=== PATIENT | female | born 1980 | race Hispanic/Latino ===

== ENCOUNTER 2017-08-19 20:40 | Observation (INO) | payer SELFPAY ==
[2017-08-19] MEDS ORDERED: Acetaminophen 500 MG TAB ONE (21:14)
--- NOTE | 2017-08-19 21:30 | CT ---
CT OF THE BRAIN WITHOUT CONTRAST: 08/19/17 COMPARISON: None. HISTORY: Headache while driving in the back of the head. TECHNIQUE: Multiple contiguous axial images were obtained in a CT of the brain without contrast. FINDINGS: There is subtle hypodense regions in the bilateral parieto-occipital regions. These may be artifactu al, but edema in the parieto-occipital regions is also a possibility. No other intracranial abnormal ity is seen. There is no evidence of hydrocephalus, intracranial hemorrhage or extra-axial fluid col lection. The calvarium and overlying soft tissues are unremarkable. The visualized paranasal sinuses and mast oid air cells are well aerated. IMPRESSION: Possible edema in the bilateral parieto-occipital regions. This could be secondary to PRES. Correlat e with history of hypertension. An MRI of the brain will be necessary to evaluate this region furthe r if desired. POS: BARRETT
[2017-08-19 21:39] LABS: #Basophils 0.1 thou/uL (0.0-0.2); #Eosinphils 0.3 thou/uL (0.0-0.7); #Lymphocytes 4.3 thou/uL (1.20-3.40); #Monocytes 0.7 thou/uL (0.11-0.59); #Neutrophils 6.2 thou/uL (1.40-6.50); %Basophils 1.1 % (0.0-1.0); %Eosinophils 2.6 % (0.0-10.0); %Lymphocytes 36.9 % (21.0-51.0); %Monocytes 5.8 % (0.0-10.0); Hematocrit 41.4 % (36.0-47.0); Mean Platelet Volume 15.7 fL (7.4-10.4); Red Blood Cell (RBC) Count 4.72 mill/uL (4.20-5.40); White Blood Cell (WBC) Count 11.5 thou/uL (4.8-10.8)
[2017-08-19 21:40] LABS: PTT 28.1 SEC (22.9-36.1); Prothrombin Time 12.9 SEC (12.0-14.7)
[2017-08-19 21:47] LABS: Anion Gap 18 mmol/L (10-20); BUN (Urea Nitrogen) 14 mg/dL (7.0-18.7); Calc. Creatinine Clearance 0 mL/min (70-130); Carbon Dioxide 23 mmol/L (22-29); Chloride 104 mmol/L (98-107); Estimated GFR-MDRD 61
[2017-08-19 22:46] VITALS: BMI 34.7
[2017-08-19] MEDS ORDERED: Ondansetron HCl/PF 4 MG/2 ML Vial IVP PRN (23:58)
[2017-08-19] MEDS ORDERED: Acetaminophen 325 MG TAB PO PRN (23:58)
[2017-08-19] MEDS ORDERED: HYDROcodone/Acetaminophen 5/325 mg Tablet PO PRN (23:58)
--- NOTE | 2017-08-19 23:58 | PDOC.EVN ---
Event Note - Event Note Event Note: H&p dictated [id number] 1. Headache 2. h/o dm type 2 3. hpl plan:see orders
[2017-08-20] MEDS ORDERED: Enoxaparin Sodium 40 MG/0.4 ML SYRINGE SC SCH (00:01)
[2017-08-20] MEDS ORDERED: Dextrose 5% in Water 1,000 ML IV PRN (00:06)
[2017-08-20] MEDS ORDERED: Dextrose 50% Abboject 50 ML SYRINGE SLOW IVP PRN (00:06)
[2017-08-20] MEDS ORDERED: HumaLOG 300 UNITS/3 ML VIAL SC PRN ×2 (00:06)
--- NOTE | 2017-08-20 06:47 | HP ---
DATE OF ADMISSION: 08/19/2017 CHIEF COMPLAINT: Headache. HISTORY OF PRESENT ILLNESS: The patient is a 37-year-old female with past medical history of intermittent headaches, diabetes mellitus type 2, hyperlipidemia who came to the ER because of headache. The patient said she started having occipital headache. The headache is dull in intensity, associated with some dizziness while she was driving the car, associated with some sweating and nausea also. Symptoms lasted for 4-5 minutes, so patient went to the outside ER. The notes say that the patient still had headache. Headache is dull kind. Denies any fever, denies any chills, denies any neck pain. She had some episodes of headache in the past also. Denies seeing a neurologist in the past. Denies any chest pain, denies any trouble breathing. PAST MEDICAL HISTORY: As per HPI. PAST SURGICAL HISTORY: Appendectomy, cholecystectomy. SOCIAL HISTORY: Denies smoking, denies alcohol, denies any drugs. MEDICATIONS: Reviewed. ALLERGIES: MORPHINE. REVIEW OF SYSTEMS: CONSTITUTIONAL: Denies any fever, denies any chills. HEENT: Eyes; denies vision problems. Ears, denies any hearing loss. NECK: Denies any neck pain. CARDIOVASCULAR: Denies any chest pain, denies palpitations. RESPIRATORY: Denies any cough, denies sputum production. GASTROINTESTINAL: Denies nausea, vomiting. MUSCULOSKELETAL: Denies any joint deformities. CRANIAL NERVE SYSTEM: Positive for headache. Positive for dizziness. PSYCHIATRIC: Denies anxiety. INTEGUMENT: Denies any rash. All other review of systems are reviewed and are negative. PHYSICAL EXAMINATION: CONSTITUTIONAL/VITAL SIGNS: At the time of H\T\P performed, blood pressure is 130/70, afebrile, respiration rate 18, pulse ox 97% on room air. GENERAL: The patient appears comfortable. HEENT: Hearing normal. Teeth intact. Tongue is moist. NECK: Supple. No JVD. CARDIOVASCULAR SYSTEM: S1, S2 present. Regular rate and rhythm. No murmurs, no rubs, no gallops. RESPIRATORY SYSTEM: No wheezing, no rhonchi. Breath sounds bilaterally. normal effort GASTROINTESTINAL: Soft, nontender, no guarding, no organomegaly, no masses felt. MUSCULOSKELETAL: No edema. moves all joints NEUROLOGIC: Cranial nerves intact. Follows commands. Strength intact, sensory intact. PSYCHIATRIC: Mood is appropriate at this time. GENITOURINARY: No suprapubic tenderness. No inguinal tenderness. INTEGUMENTARY: No rashes seen. LABORATORY DATA: At the time of H\T\P performed; white count 11.5, hemoglobin 14.3, platelet 189, PT 12.9, INR 1. BMP showed sodium 141, potassium 3.9, chloride 104, CO2 23, BUN 14, creatinine 1.02. CT head done in the outside ER was positive for possible edema in the bilateral parietooccipital region, cannot rule out PRES. ASSESSMENT AND PLAN: The patient is a 37-year-old female. 1. Headache, rule out PRES. The patient denies any history of hypertension in the past. Blood pressure is controlled at this time. We will go ahead and do MRI brain, we will consult Neurosurgery and Neurology to evaluate the patient and we will follow the patient closely. 2. History of diabetes type 2. Monitor blood sugars. We will do insulin sliding scale. 3. History of hyperlipidemia. Continue statins. The case was discussed in detail with the patient. JAVIER
[2017-08-20] MEDS ORDERED: Loperamide HCl 2 MG CAP PO PRN (08:24)
[2017-08-20] MEDS ORDERED: Milk Of Magnesia 30 ML UDCUP PO PRN (08:24)
[2017-08-20] MEDS ORDERED: Mag-Al 1200 mg/1200 mg/30 ML UDCUP PO PRN (08:24)
[2017-08-20] MEDS ORDERED: Ondansetron ODT 4 MG TAB PO PRN (08:24)
[2017-08-20] MEDS ORDERED: Diabetic Tussin 200 MG/10 ML UDCUP PO PRN (08:24)
[2017-08-20] MEDS ORDERED: Senokot 8.6 MG TAB PO PRN (08:24)
[2017-08-20] MEDS ORDERED: Eucerin (Mineral Oil/Petrolatum,White) 30 gm Jar TOP PRN (08:24)
[2017-08-20] MEDS ORDERED: Loratadine 10 MG TAB PO PRN (08:24)
[2017-08-20] MEDS ORDERED: Lisinopril 5 MG TAB PO SCH ×2 (09:00→21:00)
--- NOTE | 2017-08-20 09:43 | CON ---
DATE OF CONSULTATION: 08/20/2017 Dustin Casas PA-C dictating for Dr. Yao Santana. This is an initial 50 minute consult, in which greater than 50% of the exam was spent in counseling and coordinating patient's care. The remainder of the exam was spent in review of patient's medical records and appropriate imaging studies. CHIEF COMPLAINT: Headache. HISTORY OF PRESENT ILLNESS: Ms. Leonard is a pleasant 37-year-old female who presents to [facility] emergency room at [facility] yesterday with complaints of bilateral occipital and bilater al frontal headaches. She states that she lived with intermittent headaches for several years, but over the past month, her headaches had become more frequent and of transient induration. She states that some of her headaches are related to tension, but denies any photophobia or changes with noise . She states yesterday her headache was more severe as she was driving and was unable to concentrat e, has significant amount of pulling sensation in the bilateral occipital regions. She states some significant nausea with this headache, but otherwise denies any vomiting or blurred vision. She sta talia that over the past month, she has not had any falls or any balance issues and has not noticed an y weakness in the bilateral upper or bilateral lower extremities. She does have a history of type 2 diabetes and hypertension of which she has been taking lisinopril over the past 4 years. She does not have any family history of aneurysm and no personal history of cancer, although she does have a family member who did have breast cancer. She is not currently on any aspirin, Plavix or Coumadin. CT scan was obtained in the emergency room yesterday that showed bilateral occipital edema and Neur osurgery was asked to consult regarding this. PHYSICAL EXAMINATION: The patient is awake, alert, and appropriate. She is oriented x3 and her GCS is currently 15. She is able to appropriately identify a writing pen as purpose as well as correct ly to find the definition of [place]. She has full strength in the bilateral upper and bilateral lower extremities. She has no deficits on visual confrontation exam. She has no pronator drift calista aterally. Pupils are equal, round, and reactive bilaterally. IMPRESSION: Intermittent headache with some vasogenic edema noted on CT scan bilateral occipital re gions. PLAN: I have discussed the patient's case with Dr. Santana. At this time, it is appropriate to awai t the results of the MRI with and without contrast of the brain. At this time, we need further info rmation just to determine the next appropriate step in treatment. We will check back once the johne nt's MRI has been completed. I agree with continuing to appropriately manage the patient's headache pain and continue with neurology consult. We will continue to monitor the patient's neurologic exa m. Please call with any questions or concerns or any changes. We will again check back once her MR I has been completed.
[2017-08-20] MEDS: Famotidine 20 MG TAB PO SCH ×2 (10:53→20:11)
--- NOTE | 2017-08-20 12:14 | PDOC.PN ---
- Subjective Encounter Start Date: 08/20/17 Encounter Start Time: 07:40 -: old records requested/rev still has posterior occipital headache - Objective MAR Reviewed: Yes Vital Signs & Weight: Vital Signs (12 hours) Temp Pulse Resp BP Pulse Ox 08/20/17 10:53 62 08/20/17 08:00 98.0 F 62 18 107/74 97 08/20/17 04:11 97.8 F 73 16 106/71 100 I&O: 08/19/17 08/20/17 08/21/17 06:59 06:59 06:59 Intake Total 400 Balance 400 Result Diagrams: 08/19/17 21:28 08/19/17 21:28 Additional Labs: Accuchecks 08/20/17 08/20/17 11:28 06:13 POC Glucose 208 H 146 H EKG Reviewed by me: Yes Phys Exam - Physical Examination Constitutional: NAD HEENT: PERRLA, moist MMs, sclera anicteric Neck: no JVD, supple Respiratory: no wheezing, no rales, no rhonchi Cardiovascular: RRR, no significant murmur, no rub Gastrointestinal: soft, non-tender, no distention, positive bowel sounds Musculoskeletal: no edema, pulses present Neurological: non-focal, normal sensation, moves all 4 limbs Psychiatric: normal affect, A&O x 3 Skin: no rash, normal turgor Dx/Plan (1) Headache Code(s): R51 - HEADACHE Status: Acute Comment: PRES (2) Diabetes type 2, controlled Code(s): E11.9 - TYPE 2 DIABETES MELLITUS WITHOUT COMPLICATIONS Status: Chronic (3) Dyslipidemia Code(s): E78.5 - HYPERLIPIDEMIA, UNSPECIFIED Status: Chronic (4) Hypertension Code(s): I10 - ESSENTIAL (PRIMARY) HYPERTENSION Status: Chronic (5) Obesity (BMI 30.0-34.9) Code(s): E66.9 - OBESITY, UNSPECIFIED Status: Chronic - Plan cont current plan of care, plan discussed w/ family * MRI brain * neurology consulted * if consultants clears, will consider discharge * medication reviewed as below * symptomatic treatment. * home medication reconciled Review of Systems - Review of Systems ENT: negative: Ear Pain, Ear Discharge, Nose Pain, Nose Discharge, Nose Congestion, Mouth Pain, Mouth Swelling, Throat Pain, Throat Swelling, Other Respiratory: negative: Cough, Dry, Shortness of Breath, Hemoptysis, SOB with Excertion, Pleuritic Pain, Sputum, Wheezing Cardiovascular: negative: Chest Pain, Palpitations, Orthopnea, Paroxysmal Noc. Dyspnea, Edema, Light Headedness, Other Gastrointestinal: negative: Nausea, Vomiting, Abdominal Pain, Diarrhea, Constipation, Melena, Hematochezia, Other Genitourinary: negative: Dysuria, Frequency, Incontinence, Hematuria, Retention , Other Musculoskeletal: negative: Neck Pain, Shoulder Pain, Arm Pain, Back Pain, Hand Pain, Leg Pain, Foot Pain, Other - Medications/Allergies Allergies/Adverse Reactions: Allergies Allergy/AdvReac Type Severity Reaction Status Date / Time morphine Allergy Verified 08/19/17 22:54 Medications: Current Medications Acetaminophen (Tylenol) 650 mg PO Q4H PRN PRN Reason: Headache/Fever or Pain Hydrocodone Bitart/Acetaminophen ([place] 5/325) 1 tab PO Q4H PRN PRN Reason: Moderate Pain (4-6) Al Hydroxide/Mg Hydroxide (Maalox) 15 ml PO Q4H PRN PRN Reason: Heartburn or Indigestion Atorvastatin Calcium (Lipitor) 10 mg PO QPM [facility] Dextrose/Water (Dextrose 50%) 25 gm SLOW IVP PRN PRN PRN Reason: Hypoglycemia Famotidine (Pepcid) 20 mg PO BID [facility] Last Admin: 08/20/17 10:53 Dose: Not Given Glucagon (Glucagon) 1 mg IM PRN PRN PRN Reason: Hypoglycemia Guaifenesin (Robitussin Sf) 200 mg PO Q4H PRN PRN Reason: Cough Hydralazine HCl (Apresoline) 10 mg SLOW IVP Q4H PRN PRN Reason: Systolic BP > 180 Dextrose/Water (D5w) 1,000 mls @ 0 mls/hr IV .Q0M PRN; As Directed PRN Reason: Hypoglycemia Insulin Human Lispro (Humalog) 0 units SC .MODERATE SLIDING SC PRN PRN Reason: Moderate Correctional Scale Insulin Human Lispro (Humalog) 0 units SC .BEDTIME SLIDING SC PRN PRN Reason: Bedtime Correctional Scale Lisinopril (Zestril) 5 mg PO QPM [facility] Loperamide HCl (Imodium) 2 mg PO PRN PRN PRN Reason: Diarrhea/Loose Stools Loratadine (Claritin) 10 mg PO DAILYPRN PRN PRN Reason: Sinus Symptoms Magnesium Hydroxide (Milk Of Magnesium) 30 ml PO DAILYPRN PRN PRN Reason: Constipation Metformin HCl (Glucophage Xr) 500 mg PO BID-WM [facility] Mineral Oil/White Petrolatum (Eucerin Cream) 0 gm TOP BIDPRN PRN PRN Reason: Dry Skin Ondansetron HCl (Zofran) 4 mg IVP Q6H PRN PRN Reason: Nausea/Vomiting Ondansetron HCl (Zofran Odt) 4 mg PO Q6H PRN PRN Reason: Nausea/Vomiting Pantoprazole Sodium (Protonix) 40 mg PO QPM [facility] Senna (Senokot) 2 tab PO HSPRN PRN PRN Reason: Constipation
--- NOTE | 2017-08-20 16:38 | MRI ---
MRI BRAIN WITH AND WITHOUT CONTRAST: 08/20/17 Multiplanar and multisequential imaging of brain obtained. Postcontrast images obtained with adminis tration of 18 mL of Multihance IV. HISTORY: Headache. CT from 08/19/17 at 9 p.m. questioned lucency in the occipitoparietal regions. FINDINGS: Ventricles have normal size and position. There is no evidence of mass or edema. Specifically, there is no edema or abnormal signal seen in the occipitoparietal regions on MRI. There is no evidence of restricted diffusion. No white matter abnormality. No abnormal enhancement. The intracranial investigator internal revenue al carotid arteries and proximal cerebral arteries show flow voids. The paranasal sinuses and mastoi ds appear clear. IMPRESSION: Unremarkable MRI of brain. POS: BARRETT
[2017-08-20] MEDS ORDERED: metFORMIN HCl XR 500 MG TAB PO SCH (17:00)
[2017-08-20] MEDS: HYDROcodone/Acetaminophen 5/325 mg Tablet PO PRN (19:11)
[2017-08-20] MEDS: metFORMIN HCl XR 500 MG TAB PO SCH (20:12)
[2017-08-20] MEDS ORDERED: Atorvastatin Calcium 10 MG TAB PO SCH (21:00)
[2017-08-21] MEDS: HYDROcodone/Acetaminophen 5/325 mg Tablet PO PRN (00:05)
--- NOTE | 2017-08-21 00:25 | CON ---
DATE OF CONSULTATION: 08/20/2017 REFERRING PROVIDER: Dr. Walter Kellogg. REASON FOR CONSULTATION: Intractable headache. HISTORY OF PRESENT ILLNESS: Ms. Leonard is a pleasant 37-year-old female who has been cons idered for evaluation of intractable headache and dizziness. The patient reports that yesterday she was driving and suddenly noticed blurry vision, nausea, dizziness and difficulty with focusing and concentrating. She was having difficulty with driving. For this reason, she pulled over and gave h er son to drive her car. Her symptoms lasted for approximately 3-4 minutes. After she reached home , she developed headache into the bifrontal region. This was mild to moderate in intensity, nonradi ating and lasted for several hours. She also had pain into the back of the head that was nonradiati ng and mild in intensity. She reports that over the past one month, she has been having increasing episodes of headaches that are located into the bifrontal region as they are nonradiating, mild in i ntensity and dull in quality. She has blurry vision and fuzzy feeling with these episodes. There i s no photophobia, phonophobia, nausea, vomiting, abdominal pain, numbness, tingling or weakness asso ciated with these headaches. She also has been getting headaches into the back of the head, which a re mild in intensity and she associated them with increased stress. She notes that her woul d massage her neck and this would improve her headaches. She also mentions that she has been having headaches in the frontal region prior to 1 month ago, which were happening approximately once a fri, but over the past 1 month, they have been happening about 3-4 times a week. She has a sister wh o had the history of migraine headaches, currently she reports of having no symptoms. PAST MEDICAL HISTORY: Significant for diabetes, hyperlipidemia. PAST SURGICAL HISTORY: Significant for appendectomy and cholecystectomy. SOCIAL HISTORY: She denies smoking, alcohol use or illicit drug use. She is . CURRENT MEDICATIONS: Please review MAR. ALLERGIES: Include MORPHINE. REVIEW OF SYSTEMS: As mentioned in above HPI, otherwise negative. FAMILY HISTORY: Significant for a sister with migraine headaches. PHYSICAL EXAMINATION: VITAL SIGNS: Blood pressure 110/76, pulse of 72, temperature of 98.6, respirations of 14, O2 sats o f 99% on room air. GENERAL: Well-developed, well-nourished female, in no apparent distress. RESPIRATORY: Clear to auscultation bilaterally. CARDIOVASCULAR: Regular rate and rhythm. NEUROLOGICAL: Mental status: The patient is awake, alert, oriented x3. Speech and language: Flue nt speech. Cranial nerves: Pupils are 3 mm and reactive. Visual [place] are intact. Extraocular m uscles are intact. No nystagmus is noted. Face is symmetric. Tongue and uvula are midline. Motor exam showed normal tone and bulk with 5/5 strength in both upper and lower extremities. Sensory: Sensation is intact and symmetric. Deep tendon reflexes 2+ reflexes in both upper and lower extremi ties. Babinski: Plantar responses flexion bilaterally. Coordination intact to [id number] tapping bilaterally. LABORATORY DATA: Reviewed, which included CBC, coag panel, BMP, and urine test, which is significant for WBCs of 11.5, glucose of 113, otherwise unremarkable. IMAGING STUDIES: MRI brain without contrast was reviewed, which showed no acute intracranial abnorm ality. IMPRESSION: 1. Migraine headache with aura, intractable. 2. Tension headache. PLAN: Ms. Leonard is a pleasant 37-year-old female, who presented with the episode of naus ea, dizziness, blurry vision and difficulty concentrating followed by bifrontal headache. Based on the descriptions of her symptoms, this is likely migraine with aura. She has been having headaches, which are a combination of migraine and tension headaches. I have discussed with her at length abo tn a preventive and abortive therapy. I have explained that since these headaches has just started recently with the increased frequency, I would not recommend starting her on any preventive therapy. She can be started on Imitrex or Amerge for a breakthrough headache. I have explained to her that if the headaches continued to be bothersome and increased in frequency, then she may need to be sta rted on a preventive therapy. I will be happy to see her in my clinic if she has worsening of the h eadaches. There is no further neurological workup needed. Thank you for your consultation.
[2017-08-21] MEDS: Famotidine 20 MG TAB PO SCH (10:05)
[2017-08-21] MEDS: metFORMIN HCl XR 500 MG TAB PO SCH (10:05)
--- NOTE | 2017-08-21 11:21 | PRG ---
DATE OF SERVICE: 08/21/2017 This is a 30 minutes hospital visit note in which 30 minutes were spent in reviewing the imaging, re cord, evaluation and examination of the patient, and formulation of a plan. Greater than 50% of the time was spent in counseling on Loren Leonard. CHIEF COMPLAINT: Headache. HISTORY OF PRESENT ILLNESS: I reviewed the notes of my colleague Dustin Casas PA-C, and agree wi th its content. Ms. Leonard is a 37-year-old otherwise healthy female. She presented yesterday for headache. Head CT suggested perhaps left occipital pole, hypodensity MRI was negative; however, I r eviewed both sets of images. She has been seen by Dr. Silvestre for headache. This morning, she has no complaints. PHYSICAL EXAMINATION: She is GCS 15. She is alert, appropriate. Neurologically intact. IMPRESSION AND PLAN: I do not think there is anything neurosurgically wrong with this patient as vance ch, I will sign off. I do not think it is necessary for followup from a neurosurgical standpoint as her imaging and exam are negative. Follow up with Dr. Silvestre to be determined by him. DIAGNOSIS: Headache.
--- NOTE | 2017-08-21 12:54 | DIS ---
PRIMARY CARE PHYSICIAN: Alma Franklin D.O. DATE OF ADMISSION: 08/19/2017 DATE OF DISCHARGE: 08/21/2017 DISCHARGE DISPOSITION: Home. PRIMARY DISCHARGE DIAGNOSIS: Migraine headache. SECONDARY DISCHARGE DIAGNOSES: Diabetes type 2, hypertension, dyslipidemia, obesity with body mass index 34. PRIMARY PROCEDURE/OPERATION: None. RADIOLOGICAL INVESTIGATION: CT brain reported possible edema in bilateral parieto-occipital region. This could be secondary to PRES, but MRI subsequently was completely normal. SIGNIFICANT LABORATORY DATA: WBC 11.5, hemoglobin 14.3, and platelets 189. INR 1.0. Sodium 141, c reatinine 1.02, calcium 10.0. Urinalysis is unremarkable. test is negative. DISCHARGE MEDICATIONS: The patient will resume her home medication. The patient is on Nexium 20 mg p.o. daily, lisinopril 5 mg p.o. daily, Zocor 20 mg p.o. at bedtime, metformin ER 500 mg p.o. daily , and Imitrex 50 mg q.2 hourly p.r.n. CONTRAINDICATION: None. CODE STATUS: FULL CODE. INPATIENT CONSULTANTS: Dr. Yao Santana, neurosurgeon saw this patient and Dr. Nirmala Malik saw this patient while in hospital. TEST RESULTS PENDING ON DISCHARGE: None. ALLERGIES: MORPHINE. DISCHARGE PLAN: Post hospital, the patient will follow up with primary care physician. HOSPITAL COURSE: A 37-year-old female with above-mentioned medical problem, who was admitted by Dr. Kellogg for headache. The patient was having occipital headache, which was throbbing in nature. Initially, CT brain in the emergency room showed some suspected edema in occipitoparietal region, wh ich was consistent with PRES. The patient was admitted to medical floor. We did MRI brain that was completely normal. During this admission, neurosurgeon and neurologist saw this patient, and they recommended to treat symptomatically with Imitrex if needed for migraine headache. Her description was predominantly sounds like migraine headache as per Neurology, and this patient will follow up [facility] if recurrent problem. The patient is seen and examined at bedside today. Plan of care discussed with the [facility] and [facility]. PHYSICAL EXAMINATION: VITAL SIGNS: Currently, temperature 98.1, pulse 58, respiratory rate 20, saturation 96%, and blood pressure 90/58. Weight 190 pounds. GENERAL: The patient is currently alert, awake, in no acute distress. HEAD: Normocephalic, atraumatic. EYES: Pupils round, reactive to light. Extraocular muscle intact. ENT: Oropharynx within normal limits. Moist mucous membranes. No oral lesions. No pharyngeal najma thema, no exudates. NECK: Supple, range of motion is normal. LUNGS: Clear. CARDIAC: S1 and S2, regular without any murmur. ABDOMEN: Soft and benign. EXTREMITIES: No edema. NEUROLOGIC: Nonfocal examination. The patient is medically stable for discharge today.
[2017-08-21 13:11] VITALS: BP 95/63; TEMP 97
== END 2017-08-21 12:45 | disposition home or self-care (01) ==
LOC: SCSER 20:40 → SURG A 22:18 → INTOOBSV 22:35 → SURG A 22:35
PROVIDERS: ADMIT Internal Medicine; ATTEND Internal Medicine
DX: G43.909 Migraine, unspecified, not intractable, without status migrainosus (principal); I10 Essential (primary) hypertension; E11.9 Type 2 diabetes mellitus without complications; E78.5 Hyperlipidemia, unspecified; Z90.49 Acquired absence of other specified parts of digestive tract; Z88.5 Allergy status to narcotic agent; Z79.84 Long term (current) use of oral hypoglycemic drugs; Z79.899 Other long term (current) drug therapy
CPT/HCPCS: 36416; 70450; 70553; 80048; 81025; 85025; 85610; 85730; 96372; G0378; J1650

== ENCOUNTER 2017-11-28 06:49 | Outpatient (CLI) | payer MEDICAID, OTHER | END 2017-11-28 06:50 | disposition home or self-care (01) | LOC: BICMAMMO 06:49 | PROVIDERS: ATTEND Family Medicine | DX: N63.0 Unspecified lump in unspecified breast (principal) | CPT/HCPCS: 77066; G0279 ==